=== PATIENT | male | born 1955 | race Caucasian/White ===

== ENCOUNTER → 2016-07-20 | Outpatient (REF) | payer MEDICARE, BC, OTHER ==
[~2016-07-20] MED LIST: /QUIN20TA; ALDACTON25 PO; AMBI5TAB PO; AMBIEN5 PO; ASPI325T PO; BACTROCREA TOPICALLY; BPMONITOR; CIPR500T4; CIPRO500 PO; COLA100C2 PO; COLACE PO; HYDROD25 PO; LASI40TA; LASIX PO; LASIX20 PO; MIRALAX; MIRALAX PO; NIZORALCR TOP; SPIR25TA2 PO; SYR.5; VIAGRA25 PO; VICODIN PO; WALKER; ZANA4CAP PO; ZANAFLEX4 PO; ZANT150T; ZOLO100T; ZOLOFT PO; ZOLOFT100 PO; ZOLOFT50 PO; ZYRTEC10 PO; [UNRECOGNIZED DRUG - CODE] PO; [UNRECOGNIZED DRUG - OTHER]
[2016-07-20 16:49] LABS: FERRITIN 153 NG/ML (26-388); PERCENT SATURATION 18.2 % (19.7-37.4); TOTAL IRON BINDING CAPACITY 384 UG/DL (250-450)
[2016-07-20 16:57] LABS: VITAMIN B12 LEVEL 405 PG/ML
[2016-07-20 16:58] LABS: FOLATE > 24.0 NG/ML
== END | disposition home or self-care (01) ==
LOC: M LAB REF 15:57
PROVIDERS: ATTEND Family Medicine
DX: D64.9 Anemia, unspecified (principal)

== ENCOUNTER → 2016-09-05 | Outpatient (REF) | payer MEDICARE, BC, OTHER ==
[2016-09-05 11:42] LABS: BASO % 0.7 % (0.0-1.0); EOS # 0.5 K/mm3 (0.0-0.50); EOS % 8.2 % (0.0-3.0); LARGE UNSTAINED CELL # 0.1 K/mm3 (0.0-0.4); LARGE UNSTAINED CELL % 2.2 % (0.0-4.0); LYMPH # 1.1 K/mm3 (1.5-4.5); MEAN CORPUSCULAR HEMOGLOBIN 28.7 pg (27.0-33.0); MEAN CORPUSCULAR VOLUME 84.4 fl (80.0-96.0); MONO # 0.4 K/mm3 (0.0-0.8); MONO % 6.8 % (0.0-5.0); NEUTROPHILS # 3.8 K/mm3 (1.8-7.7); PLATELET COUNT, AUTOMATED 222 k/mm3 (150-450); RED CELL DISTRIBUTION WIDTH 12.2 % (11.5-14.5)
[2016-09-05 13:07] LABS: ALBUMIN/GLOBULIN RATIO 1.11 (1.00-1.93); ALKALINE PHOSPHATASE 96 U/L (45-117); ALT/SGPT 28 U/L (12-78); ANION GAP 6 MEQ/L (8-16); AST/SGOT 16 U/L (15-37); BILIRUBIN,TOTAL 0.3 MG/DL (0.2-1.0); BLOOD UREA NITROGEN 16 MG/DL (7-18); CALCIUM LEVEL 9.3 MG/DL (8.5-10.1); CARBON DIOXIDE LEVEL 31 MEQ/L (21-32); CHLORIDE LEVEL 100 MEQ/L (98-107); CHOLESTEROL LEVEL 194 MG/DL (<200); CREATININE FOR GFR 0.85 MG/DL (0.70-1.30); GLOMERULAR FILTRATION RATE > 60.0 (>56); GLUCOSE, FASTING 90 MG/DL (70-105); POTASSIUM SERUM 4.8 MEQ/L (3.5-5.1); SODIUM LEVEL 137 MEQ/L (136-145); T UPTAKE 32 % (33-40); THYROXINE (T4) 7.2 UG/DL (4.5-12.0); TOTAL PROTEIN 7.6 GM/DL (6.4-8.2); TRIGLYCERIDES LEVEL 212 MG/DL (<150)
== END ==
LOC: SKLABADC 08:45
PROVIDERS: ATTEND Family Medicine
DX: E78.5 Hyperlipidemia, unspecified (principal); D64.9 Anemia, unspecified; I10 Essential (primary) hypertension

== ENCOUNTER → 2016-10-23 | Outpatient (CLI) | payer MEDICARE, BC, OTHER ==
--- NOTE | 2016-10-23 10:46 | REP ---
Clinical: Abdominal pain and constipation. Technique: Single supine view of the abdomen and pelvis. Comparison: 03/03/2012. Findings: Mildly distended air-filled loops of small large bowel suggest underlying ileus. Prior cholecystectomy. No organomegaly. Skeletal structures demonstrate degenerative changes primarily involving the lower lumbosacral spine and right hip. Impression: Findings suggest ileus. Signed by Norman Main MD 10/23/2016 10:37 A
== END ==
LOC: M RAD 09:57
PROVIDERS: ATTEND Family Medicine
DX: K59.00 Constipation, unspecified (principal)

== ENCOUNTER → 2017-08-07 | Outpatient (REF) | payer MEDICARE, BC, OTHER ==
[2017-08-07 10:46] LABS: ALBUMIN 4.3 GM/DL (3.2-5.2); ALBUMIN/GLOBULIN RATIO 1.19 (1.00-1.93); ALKALINE PHOSPHATASE 121 U/L (45-117); ALT/SGPT 33 U/L (12-78); ANION GAP 5 MEQ/L (8-16); AST/SGOT 21 U/L (7-37); BILIRUBIN,TOTAL 0.4 MG/DL (0.2-1.0); BLOOD UREA NITROGEN 12 MG/DL (7-18); CALCIUM LEVEL 9.2 MG/DL (8.8-10.2); CARBON DIOXIDE LEVEL 33 MEQ/L (21-32); CHLORIDE LEVEL 98 MEQ/L (98-107); CHOLESTEROL LEVEL 226 MG/DL (<200); CHOLESTEROL RISK RATIO 5.022 (<5); CREATININE FOR GFR 0.84 MG/DL (0.70-1.30); GLOMERULAR FILTRATION RATE > 60.0 (>49); GLUCOSE, FASTING 71 MG/DL (70-100); HDL CHOLESTEROL 45 MG/DL (>40); LDL CHOLESTEROL 130.4 MG/DL (<100); NON-HDL-C 181 MG/DL; POTASSIUM SERUM 4.2 MEQ/L (3.5-5.1); SODIUM LEVEL 136 MEQ/L (136-145); TOTAL PROTEIN 7.9 GM/DL (6.4-8.2); TRIGLYCERIDES LEVEL 253 MG/DL (<150)
== END ==
LOC: SKLABADC 09:46
DX: E78.5 Hyperlipidemia, unspecified (principal); I10 Essential (primary) hypertension
CPT/HCPCS: 80053

== ENCOUNTER → 2018-01-09 | Outpatient (REF) | payer MEDICARE, BC, OTHER ==
[2018-01-09 19:26] LABS: C REACTIVE PROTEIN QUANTITATIV 0.42 MG/DL (0.00-0.30)
== END ==
LOC: M LAB REF 17:19
DX: L03.90 Cellulitis, unspecified (principal)
CPT/HCPCS: 86140

== ENCOUNTER → 2018-01-22 | Outpatient (CLI) | payer MEDICARE, BC | LOC: M RAD 10:01 | DX: M79.89 Other specified soft tissue disorders (principal); M79.604 Pain in right leg | CPT/HCPCS: 93971 ==

== ENCOUNTER → 2018-01-23 | Outpatient (CLI) | payer MEDICARE, BC ==
[~2018-01-23] MED LIST changes: -/QUIN20TA; -ALDACTON25 PO; -AMBI5TAB PO; -AMBIEN5 PO; -ASPI325T PO; -BACTROCREA TOPICALLY; -BPMONITOR; -CIPR500T4; -CIPRO500 PO; -COLA100C2 PO; -COLACE PO; +GASTROGRAFIN SOLUTION 30ML (Q9963) As Ordered; -HYDROD25 PO; +ISOVUE-370 76% 100ML VIAL (Q9967) As Ordered; -LASI40TA; -LASIX PO; -LASIX20 PO; -MIRALAX; -MIRALAX PO; -NIZORALCR TOP; -SPIR25TA2 PO; -SYR.5; -VIAGRA25 PO; -VICODIN PO; -WALKER; -ZANA4CAP PO; -ZANAFLEX4 PO; -ZANT150T; -ZOLO100T; -ZOLOFT PO; -ZOLOFT100 PO; -ZOLOFT50 PO; -ZYRTEC10 PO; -[UNRECOGNIZED DRUG - CODE] PO; -[UNRECOGNIZED DRUG - OTHER]
== END ==
LOC: M RAD 13:28
DX: R60.0 Localized edema (principal); N28.1 Cyst of kidney, acquired
CPT/HCPCS: Q9963

== ENCOUNTER → 2018-07-15 | Outpatient (REF) | payer MEDICARE, BC, OTHER ==
[~2018-07-15] MED LIST changes: +/QUIN20TA; +ALDACTON25 PO; +AMBI5TAB PO; +AMBIEN5 PO; +ASPI325T PO; +BACTROCREA TOPICALLY; +BPMONITOR; +CIPR500T4; +CIPRO500 PO; +COLA100C2 PO; +COLACE PO; -GASTROGRAFIN SOLUTION 30ML (Q9963) As Ordered; +HYDROD25 PO; -ISOVUE-370 76% 100ML VIAL (Q9967) As Ordered; +LASI40TA; +LASIX PO; +LASIX20 PO; +MIRALAX; +MIRALAX PO; +NIZORALCR TOP; +SPIR25TA2 PO; +SYR.5; +VIAGRA25 PO; +VICODIN PO; +WALKER; +ZANA4CAP PO; +ZANAFLEX4 PO; +ZANT150T; +ZOLO100T; +ZOLOFT PO; +ZOLOFT100 PO; +ZOLOFT50 PO; +ZYRTEC10 PO; +[UNRECOGNIZED DRUG - CODE] PO; +[UNRECOGNIZED DRUG - OTHER]
[2018-07-15 10:41] LABS: ALBUMIN 3.9 GM/DL (3.2-5.2); ALT/SGPT 30 U/L (12-78); BILIRUBIN,TOTAL 0.3 MG/DL (0.2-1.0); BLOOD UREA NITROGEN 14 MG/DL (7-18); CALCIUM LEVEL 8.9 MG/DL (8.8-10.2); CARBON DIOXIDE LEVEL 33 MEQ/L (21-32); CHLORIDE LEVEL 102 MEQ/L (98-107); CHOLESTEROL LEVEL 202 MG/DL (<200); CHOLESTEROL RISK RATIO 4.926 (<5); CREATININE FOR GFR 0.85 MG/DL (0.70-1.30); GLOMERULAR FILTRATION RATE > 60.0 (>49); GLUCOSE, FASTING 96 MG/DL (70-100); HDL CHOLESTEROL 41 MG/DL (>40); LDL CHOLESTEROL 112 MG/DL (<100); NON-HDL-C 161 MG/DL; POTASSIUM SERUM 4.5 MEQ/L (3.5-5.1); SODIUM LEVEL 139 MEQ/L (136-145); TOTAL PROTEIN 7.5 GM/DL (6.4-8.2); TRIGLYCERIDES LEVEL 246 MG/DL (<150)
== END ==
LOC: SKLABADC 09:17
PROVIDERS: ATTEND Family Medicine
DX: E78.5 Hyperlipidemia, unspecified (principal); I10 Essential (primary) hypertension

== ENCOUNTER → 2019-01-14 | Outpatient (REF) | payer MEDICARE, BC, OTHER ==
[~2019-01-14] MED LIST changes: -/QUIN20TA; +ACCU1TAB2
[2019-01-14 11:46] LABS: HEMATOCRIT 44.1 % (42.0-52.0); HEMOGLOBIN 14.7 g/dl (13.5-17.5); MEAN CORPUSCULAR HEMOGLOBIN 29.4 pg (27.0-33.0); MEAN CORPUSCULAR HGB CONC 33.3 g/dl (32.0-36.5); MEAN CORPUSCULAR VOLUME 88.2 fl (80.0-96.0); PLATELET COUNT, AUTOMATED 222 10^3/uL (150-450); WHITE BLOOD COUNT 6.9 10^3/uL (4.0-10.0)
[2019-01-14 12:13] LABS: ALBUMIN 3.9 GM/DL (3.2-5.2); ALT/SGPT 37 U/L (12-78); BILIRUBIN,TOTAL 0.3 MG/DL (0.2-1.0); BLOOD UREA NITROGEN 10 MG/DL (7-18); CALCIUM LEVEL 9.2 MG/DL (8.8-10.2); CARBON DIOXIDE LEVEL 34 MEQ/L (21-32); CHLORIDE LEVEL 103 MEQ/L (98-107); CHOLESTEROL LEVEL 228 MG/DL (<200); CREATININE FOR GFR 0.84 MG/DL (0.70-1.30); GLOMERULAR FILTRATION RATE > 60.0 (>49); GLUCOSE, FASTING 109 MG/DL (70-100); HDL CHOLESTEROL 41 MG/DL (>40); LDL CHOLESTEROL 119 MG/DL (<100); NON-HDL-C 187 MG/DL; SODIUM LEVEL 141 MEQ/L (136-145); TOTAL PROTEIN 7.6 GM/DL (6.4-8.2); TRIGLYCERIDES LEVEL 342 MG/DL (<150)
== END ==
LOC: SKLABADC 10:34
PROVIDERS: ATTEND Family Medicine
DX: D64.9 Anemia, unspecified (principal); E78.5 Hyperlipidemia, unspecified; I10 Essential (primary) hypertension

== ENCOUNTER → 2019-02-12 | Outpatient (REF) | payer MEDICARE, BC, OTHER | LOC: M LAB REF 13:08 | PROVIDERS: ATTEND Internal Medicine | DX: I20.0 Unstable angina (principal) ==

== ENCOUNTER → 2019-02-13 | Outpatient (CLI) | payer MEDICARE, BC ==
--- NOTE | 2019-02-13 11:40 | REP ---
Clinical: Left lower extremity pain and swelling . Technique: Ramos scale and color Doppler evaluation using linear high frequency transducer. Findings: Ultrasound examination of the left lower extremity deep venous structures from the common femoral vein to the popliteal vein demonstrates normal compressibility flow and wave patterns in response to respiration and augmentation. There is no evidence for deep venous thrombosis. Impression: No evidence for deep venous thrombosis. Electronically Signed by Norman Main MD 02/13/2019 11:31 A
== END ==
LOC: M RAD 10:25
PROVIDERS: ATTEND Internal Medicine
DX: M79.662 Pain in left lower leg (principal); M79.89 Other specified soft tissue disorders

== ENCOUNTER → 2019-02-27 | Outpatient (REF) | payer MEDICARE, BC | LOC: M LAB REF 18:07 | PROVIDERS: ATTEND Internal Medicine | DX: L03.116 Cellulitis of left lower limb (principal) ==

== ENCOUNTER → 2019-03-05 | Outpatient (REF) | payer MEDICARE, BC ==
[2019-03-05 11:45] LABS: BLOOD UREA NITROGEN 10 MG/DL (7-18); CALCIUM LEVEL 9.1 MG/DL (8.8-10.2); CARBON DIOXIDE LEVEL 34 MEQ/L (21-32); CHLORIDE LEVEL 99 MEQ/L (98-107); CREATININE FOR GFR 0.94 MG/DL (0.70-1.30); GLOMERULAR FILTRATION RATE > 60.0 (>49); GLUCOSE, FASTING 92 MG/DL (70-100); SODIUM LEVEL 139 MEQ/L (136-145)
== END ==
LOC: SKLABADC 09:46
PROVIDERS: ATTEND Internal Medicine
DX: I87.2 Venous insufficiency (chronic) (peripheral) (principal); R60.0 Localized edema

== ENCOUNTER → 2019-07-20 | Outpatient (POV) | payer MEDICARE, BC ==
[2019-07-20 11:25] LABS: ALBUMIN 3.8 GM/DL (3.2-5.2); ALT/SGPT 29 U/L (12-78); BILIRUBIN,TOTAL 0.3 MG/DL (0.2-1.0); BLOOD UREA NITROGEN 13 MG/DL (7-18); CALCIUM LEVEL 9.7 MG/DL (8.8-10.2); CARBON DIOXIDE LEVEL 30 MEQ/L (21-32); CHLORIDE LEVEL 102 MEQ/L (98-107); CHOLESTEROL LEVEL 194 MG/DL (<200); CHOLESTEROL RISK RATIO 5.243 (<5); CREATININE FOR GFR 0.88 MG/DL (0.70-1.30); GLOMERULAR FILTRATION RATE > 60.0 (>49); GLUCOSE, FASTING 85 MG/DL (70-100); HDL CHOLESTEROL 37 MG/DL (>40); LDL CHOLESTEROL 100 MG/DL (<100); NON-HDL-C 157 MG/DL; SODIUM LEVEL 138 MEQ/L (136-145); TOTAL PROTEIN 7.3 GM/DL (6.4-8.2); TRIGLYCERIDES LEVEL 286 MG/DL (<150)
== END ==
LOC: SKLABADC 09:53
PROVIDERS: ATTEND Family Medicine
DX: I10 Essential (primary) hypertension (principal); E78.5 Hyperlipidemia, unspecified; R53.83 Other fatigue

== ENCOUNTER → 2023-12-09 | Outpatient (REF) | payer MEDICARE, BC, MEDICAID ==
[~2023-12-09] MED LIST changes: +BAYE325T12 PO; +DOCU100C16 PO; +FISH1CAP32 PO; +FURO40TA2 PO; +OMEP40CA5 PO; +PRENTAB53 PO; +ROLLMIS8; +SIMV20TA22 PO; +VITA200016 PO; -WALKER; +ZOLO100T PO; +baclofen pump
[2023-12-09 18:30] LABS: INR 0.97; PARTIAL THROMBOPLASTIN TIME 34.4 SECONDS (24.8-34.2); PROTHROMBIN TIME 12.6 SECONDS (12.5-14.5)
== END ==
LOC: M LAB REF 16:39
PROVIDERS: ATTEND Internal Medicine
DX: S50.01XA Contusion of right elbow, initial encounter (principal); L03.116 Cellulitis of left lower limb; Y93.9 Activity, unspecified; Y92.9 Unspecified place or not applicable